=== PATIENT | female | born 1985 | race Caucasian/White ===

== ENCOUNTER 2017-06-20 17:25 | Emergency (ER) | payer OTHER ==
[~2017-06-20] VITALS: Ht 170.2 cm; Wt 81.7 kg
--- NOTE | ~2017-06-20 | EKG ---
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
[~2017-06-20 17:25] MED LIST: ABILIFY20 MG; AURALGAN OTIC S14 ML OT; BACTRIM DS TAB1 EACH PO; CILOXAN5 ML OP; DARVOCET-N 1001 EACH PO; DOXYCYCLINE 10100 MG PO; FLAGYL500 MG PO; IBUPROFEN 800800 M1 PO; KEFLEX250 MG PO; KEFLEX500 MG PO; MECLIZINE 25 MG25 M1 PO; MUPIROCIN22 GM TOP; NOHOMEMEDICATIONS; NORCO 5-325 TA1 EACH PO; ULTRAM 50MG TAB50 MG PO; VICODIN 5-5001 EACH PO; VICOPROFEN 2001 EACH PO; ZOLOFT25 MG PO
[2017-06-20 18:29] LABS: ABSOLUTE NEUTROPHILS 3.8 thou/uL (1.4-8.2); BASOPHILS 0.5 % (0.0-2.0); HEMATOCRIT 41.5 % (37.0-47.0); LYMPHOCYTES 35.3 % (24.0-44.0); MCH 30.6 pg (26.0-34.0); MCHC 33.7 g/dL (28.0-37.0); PLATELET COUNT 251 thou/uL (150-400); POLYS 54.2 % (36.0-66.0); RBC 4.56 mil/uL (4.20-5.00); RDW 13.3 % (10.5-14.5); WBC 6.9 thou/uL (4.0-11.0)
[2017-06-20 18:30] LABS: URINE BILIRUBIN NEGATIVE (Negative); URINE BLOOD NEGATIVE (Negative); URINE CLARITY CLEAR; URINE COLOR YELLOW; URINE GLUCOSE-RANDOM* NEGATIVE (Negative); URINE KETONES NEGATIVE (Negative); URINE LEUKOCYTES NEGATIVE (Negative); URINE NITRITE NEGATIVE (Negative); URINE PROTEIN (DIPSTICK) NEGATIVE (Negative); URINE UROBILINOGEN 0.2 E.U./dl (0.2-1.0)
[2017-06-20 18:41] LABS: CALCIUM 8.9 mg/dL (8.5-10.1); CREATININE 0.7 mg/dL (0.6-1.0)
[2017-06-20 18:47] LABS: ALBUMIN 3.2 g/dL (3.4-5.0); TOTAL BILIRUBIN 0.1 mg/dL (<0.1-1.0); TOTAL PROTEIN 6.7 g/dL (6.4-8.2)
== END 2017-06-20 19:57 | disposition home or self-care (01) ==
LOC: ER 17:25
PROVIDERS: Nurse Practitioner Family
DX: R51 Headache (principal); H93.12 Tinnitus, left ear; R56.9 Unspecified convulsions; F31.9 Bipolar disorder, unspecified; Z88.5 Allergy status to narcotic agent; F17.210 Nicotine dependence, cigarettes, uncomplicated